=== PATIENT | male | born 1955 | race Caucasian/White ===

== ENCOUNTER 2022-04-08 14:23 | Inpatient (IN) ==
[2022-04-08] MEDS ORDERED: NS 0.9% 1000 ml BAG 1,000 ML IV ONE (14:44)
[2022-04-08] MEDS ORDERED: Ondansetron ODT 4 mg TAB 4 MG TAB PO ONE (15:31)
[2022-04-08 15:33] LABS: ABS Basophils 0.1 10^3/ul (0-0.2); ABS Eosinophils 0.2 10^3/ul (0-0.6); ABS Lymphocytes 1.6 10^3/ul (1.0-4.8); ABS Monocytes 1.1 10^3/ul (0-0.8); Eosinophil % 1.3 %; Hematocrit 31 % (42-52); Lymphocyte % 12.3 %; Mean Corpuscular HGB Conc 32 g/dL (31-36); Mean Corpuscular Hemoglobin 26 pg (27-31); Mean Corpuscular Volume 81 fL (80-94); Mean Platelet Volume 7.1 fL (7.4-10.4); Platelet Count 557 10^3/uL (150-450); Red Blood Count 3.87 10^6 /uL (4.18-5.48); Red Cell Distribution Width 18 % (10-15)
[2022-04-08 15:55] LABS: High Sens Troponin Baseline 5 pg/mL (<20)
[2022-04-08 16:11] LABS: ALT 14 U/L (7-52); AST 10 U/L (13-39); Albumin 3.5 g/dL (3.2-5.2); Albumin/Globulin Ratio 1.4 (1-3); Alkaline Phosphatase 73 U/L (35-149); Anion Gap 11 mmol/L (2-11); Blood Urea Nitrogen 15 mg/dL (6-24); CO2 Carbon Dioxide 28 mmol/L (22-32); Calcium 9.5 mg/dL (8.6-10.3); Chloride 98 mmol/L (101-111); Creatine Kinase 13 U/L (10-223); Globulin 2.5 g/dL (2-4); Glucose 83 mg/dL (70-100); Magnesium 1.8 mg/dL (1.9-2.7); Potassium 4.7 mmol/L (3.5-5.0); Sodium 137 mmol/L (135-145); eGFR CKD-EPI 89.4 (>60)
[2022-04-08 16:25] LABS: TSH Ultra Thyroid Stim Horm 1.91 mcIU/mL (0.34-5.60)
[2022-04-08 17:10] LABS: High Sensitivity Troponin 1 Hr < 3 pg/mL (<20)
[2022-04-08] MEDS ORDERED: Hydrocortisone INJ 100 MG/2ML 2 ML VIAL IV ONE (18:56)
[2022-04-08 19:20] LABS: Rheumatoid Factor > 120 IU/mL (<15)
[2022-04-08 20:01] LABS: Urine Appearance Clear; Urine Bilirubin Negative (Negative); Urine Blood Negative (Negative); Urine Color Yellow; Urine Glucose Negative (Negative); Urine Ketones Trace (Negative); Urine Nitrite Negative (Negative); Urine Protein Negative (Negative); Urine Specific Gravity 1.019 (1.002-1.030); Urine Urobilinogen Negative (Negative)
[2022-04-08] MEDS ORDERED: Ondansetron 4 mg VIAL 2 MG/ML 2 ml VIAL IV PRN (20:04)
[2022-04-08 21:23] LABS: Erythrocyte Sed Rate 116 mm/Hr (0-19)
[2022-04-08] MEDS ORDERED: Calcium Carb (TUMS) 500 mg CHEW TAB PO PRN (22:28)
[2022-04-08] MEDS ORDERED: Lidocaine 4% TOPICAL 50 ML TOP.SOLN TOPICAL PRN (22:28)
[2022-04-09 06:30] LABS: Hematocrit 28 % (42-52); Hemoglobin 8.9 g/dL (14.0-18.0); Mean Corpuscular HGB Conc 32 g/dL (31-36); Mean Corpuscular Hemoglobin 26 pg (27-31); Mean Corpuscular Volume 81 fL (80-94); Mean Platelet Volume 7.1 fL (7.4-10.4); Platelet Count 501 10^3/uL (150-450); Red Blood Count 3.45 10^6 /uL (4.18-5.48); Red Cell Distribution Width 18 % (10-15); White Blood Count 8.9 10^3/uL (3.5-10.8)
[2022-04-09 07:09] LABS: Magnesium 1.8 mg/dL (1.9-2.7); Potassium 4.7 mmol/L (3.5-5.0); eGFR CKD-EPI 95.8 (>60)
[2022-04-09] MEDS: SPIRIVA Respimat (tiotropium) 2.5 mcg/inh Inhaler INH SCH (08:57)
[2022-04-09] MEDS: Clotrimazole 1% CREAM 30 gm TOPICAL SCH ×2 (09:28→22:03)
[2022-04-09] MEDS: MINERAL OIL ISOPROPYL MYRISTAT TOPICAL SCH ×3 (09:29→22:02)
[2022-04-09] MEDS: TERBINAFINE HCL 250 MG PO SCH (09:30)
[2022-04-09] MEDS ORDERED: methylPREDNISolone SOD SUCC 1000 MG ML VIAL IVPB SCH (12:00)
[2022-04-09] MEDS: methylPREDNISolone SOD SUCC 1,000 MG in NS 0.9% 250 ml 250 ML IVPB SCH (13:24)
[2022-04-09 18:27] LABS: Uric Acid 5.2 mg/dL (4.4-7.6)
[2022-04-09] MEDS: Acetaminophen IV 1 GM/100ML 1,000 MG/100 ML BAG IV SCH (22:02)
[2022-04-10 05:43] LABS: ABS Lymphocytes 0.8 10^3/ul (1.0-4.8); ABS Monocytes 0.2 10^3/ul (0-0.8); Hematocrit 28 % (42-52); Hemoglobin 8.5 g/dL (14.0-18.0); Lymphocyte % 11.6 %; Mean Corpuscular HGB Conc 31 g/dL (31-36); Mean Corpuscular Hemoglobin 25 pg (27-31); Mean Corpuscular Volume 80 fL (80-94); Mean Platelet Volume 7.2 fL (7.4-10.4); Platelet Count 493 10^3/uL (150-450); Red Blood Count 3.45 10^6 /uL (4.18-5.48); Red Cell Distribution Width 18 % (10-15); White Blood Count 6.9 10^3/uL (3.5-10.8)
[2022-04-10] MEDS: Acetaminophen IV 1 GM/100ML 1,000 MG/100 ML BAG IV SCH ×3 (06:03→22:30)
[2022-04-10 06:22] LABS: Albumin/Globulin Ratio 1.4 (1-3); Globulin 2.2 g/dL (2-4); Magnesium 1.7 mg/dL (1.9-2.7); Potassium 4.8 mmol/L (3.5-5.0); Total Bilirubin 0.1 mg/dL (0.2-1.0); Total Protein 5.2 g/dL (6.4-8.9)
[2022-04-10] MEDS ORDERED: Magnesium Sulfate 2 gm BAG 2 GM/50 ML BAG IVPB ONE (07:14)
[2022-04-10] MEDS: Clotrimazole 1% CREAM 30 gm TOPICAL SCH ×2 (07:58→20:38)
[2022-04-10] MEDS: MINERAL OIL ISOPROPYL MYRISTAT TOPICAL SCH ×3 (08:00→20:38)
[2022-04-10] MEDS: TERBINAFINE HCL 250 MG PO SCH (08:00)
[2022-04-10] MEDS: SPIRIVA Respimat (tiotropium) 2.5 mcg/inh Inhaler INH SCH (08:12)
[2022-04-10] MEDS: methylPREDNISolone SOD SUCC 1,000 MG in NS 0.9% 250 ml 250 ML IVPB SCH (10:15)
[2022-04-11 05:59] LABS: ABS Lymphocytes 0.9 10^3/ul (1.0-4.8); ABS Monocytes 0.5 10^3/ul (0-0.8); ABS Neutrophils 14.8 10^3/ul (1.5-7.7); Hematocrit 27 % (42-52); Hemoglobin 8.4 g/dL (14.0-18.0); Lymphocyte % 5.4 %; Mean Corpuscular HGB Conc 31 g/dL (31-36); Mean Corpuscular Hemoglobin 25 pg (27-31); Mean Corpuscular Volume 80 fL (80-94); Mean Platelet Volume 7.7 fL (7.4-10.4); Platelet Count 512 10^3/uL (150-450); Red Blood Count 3.34 10^6 /uL (4.18-5.48); Red Cell Distribution Width 18 % (10-15); White Blood Count 16.1 10^3/uL (3.5-10.8)
[2022-04-11] MEDS: Acetaminophen IV 1 GM/100ML 1,000 MG/100 ML BAG IV SCH ×3 (06:27→20:53)
[2022-04-11 06:29] LABS: C Reactive Protein 39.38 mg/L (<8.01); Calcium 8.9 mg/dL (8.6-10.3); Potassium 4.6 mmol/L (3.5-5.0)
[2022-04-11] MEDS: MINERAL OIL ISOPROPYL MYRISTAT TOPICAL SCH ×3 (07:36→20:53)
[2022-04-11] MEDS: TERBINAFINE HCL 250 MG PO SCH (07:37)
[2022-04-11] MEDS: Clotrimazole 1% CREAM 30 gm TOPICAL SCH ×2 (08:11→20:52)
[2022-04-11] MEDS: SPIRIVA Respimat (tiotropium) 2.5 mcg/inh Inhaler INH SCH (08:23)
[2022-04-11] MEDS: methylPREDNISolone SOD SUCC 1,000 MG in NS 0.9% 250 ml 250 ML IVPB SCH (09:22)
[2022-04-11 13:15] LABS: Erythrocyte Sed Rate 96 mm/Hr (0-19)
[2022-04-12 06:53] LABS: ABS Lymphocytes 1.3 10^3/ul (1.0-4.8); ABS Monocytes 0.6 10^3/ul (0-0.8); Hematocrit 25 % (42-52); Hemoglobin 8.1 g/dL (14.0-18.0); Mean Corpuscular HGB Conc 32 g/dL (31-36); Mean Corpuscular Hemoglobin 26 pg (27-31); Mean Corpuscular Volume 80 fL (80-94); Mean Platelet Volume 7.2 fL (7.4-10.4); Platelet Count 454 10^3/uL (150-450); Red Blood Count 3.14 10^6 /uL (4.18-5.48); Red Cell Distribution Width 18 % (10-15)
[2022-04-12] MEDS: Acetaminophen IV 1 GM/100ML 1,000 MG/100 ML BAG IV SCH ×3 (07:27→22:21)
[2022-04-12 07:36] LABS: Potassium 4.6 mmol/L (3.5-5.0); eGFR CKD-EPI 94.2 (>60)
[2022-04-12] MEDS: SPIRIVA Respimat (tiotropium) 2.5 mcg/inh Inhaler INH SCH (07:37)
[2022-04-12] MEDS: Clotrimazole 1% CREAM 30 gm TOPICAL SCH ×2 (08:49→20:59)
[2022-04-12] MEDS: MINERAL OIL ISOPROPYL MYRISTAT TOPICAL SCH ×3 (08:52→21:00)
[2022-04-12] MEDS: TERBINAFINE HCL 250 MG PO SCH (08:52)
[2022-04-12 11:03] LABS: Rapid COVID-19 Molecular Undetected (Undetected)
[2022-04-12 16:55] LABS: Albumin 2.3 g/dL (3.4-4.7); Albumin/Globulin Ratio 0.78; Gamma Globulin 0.4 g/dL (0.6-1.6); Total Protein(PEP) 5.3 g/dL (6.3 - 7.9)
[2022-04-13] MEDS: Acetaminophen IV 1 GM/100ML 1,000 MG/100 ML BAG IV SCH (06:19)
[2022-04-13] MEDS: SPIRIVA Respimat (tiotropium) 2.5 mcg/inh Inhaler INH SCH (07:57)
[2022-04-13] MEDS: Clotrimazole 1% CREAM 30 gm TOPICAL SCH (10:07)
[2022-04-13] MEDS: MINERAL OIL ISOPROPYL MYRISTAT TOPICAL SCH (10:07)
[2022-04-13] MEDS: TERBINAFINE HCL 250 MG PO SCH (10:07)
[2022-04-13 12:46] VITALS: BP 120/69
[2022-04-14 15:46] LABS: Kappa Free Light Chain 0.8 mg/dL; Lambda Free Light Chain, S 0.81 mg/dL
== END 2022-04-13 13:25 | DRG 547 ==
LOC: EDHOLD 14:23 → ED 14:23 → SUATTDRO 19:46 → MED 04-09 05:49 → SUATTDRO 04-09 17:00
PROVIDERS: ADMIT Internal Medicine; ATTEND Student in an Organized Health Care Education/Training Program

== ENCOUNTER 2022-06-02 13:00 | Inpatient (IN) ==
[2022-06-02] MEDS ORDERED: Morphine 4 MG/ML VIAL (1 ml) IV ONE (13:30)
[2022-06-02 14:23] LABS: Hematocrit 34 % (42-52); Hemoglobin 10.5 g/dL (14.0-18.0); Mean Corpuscular HGB Conc 31 g/dL (31-36); Mean Corpuscular Hemoglobin 25 pg (27-31); Mean Corpuscular Volume 81 fL (80-94); Mean Platelet Volume 7.3 fL (7.4-10.4); Platelet Count 489 10^3/uL (150-450); Red Blood Count 4.19 10^6 /uL (4.18-5.48); Red Cell Distribution Width 24 % (10-15); White Blood Count 15.2 10^3/uL (3.5-10.8)
[2022-06-02] MEDS ORDERED: Lactated Ringers 1000 ml BAG 1,000 ML IV ONE (14:43)
[2022-06-02 15:00] LABS: ABS Basophils 0.1 10^3/ul (0-0.2); ABS Eosinophils 0.1 10^3/ul (0-0.6); ABS Lymphocytes 1.6 10^3/ul (1.0-4.8); ABS Monocytes 1.6 10^3/ul (0-0.8); ABS Neutrophils 11.8 10^3/ul (1.5-7.7); Eosinophil % 0.6 %; Lymphocyte % 10.3 %
[2022-06-02 15:31] LABS: ALT 7 U/L (7-52); AST 9 U/L (13-39); Albumin 3.5 g/dL (3.2-5.2); Albumin/Globulin Ratio 1.3 (1-3); Alkaline Phosphatase 71 U/L (35-149); Anion Gap 13 mmol/L (2-11); Blood Urea Nitrogen 12 mg/dL (6-24); C Reactive Protein 273.79 mg/L (<8.01); CO2 Carbon Dioxide 24 mmol/L (22-32); Calcium 9.3 mg/dL (8.6-10.3); Chloride 95 mmol/L (101-111); Globulin 2.6 g/dL (2-4); Glucose 67 mg/dL (70-100); Magnesium 1.9 mg/dL (1.9-2.7); Phosphorus 3.6 mg/dL (2.5-5.0); Potassium 4.7 mmol/L (3.5-5.0); Sodium 132 mmol/L (135-145); Total Protein 6.1 g/dL (6.4-8.9); eGFR CKD-EPI 96.5 (>60)
[2022-06-02] MEDS ORDERED: NS 0.9% IVPB ONE (18:03)
[2022-06-02] MEDS ORDERED: METHYLPREDNISOLONE SOD SUCC IVPB ONE (18:03)
[2022-06-02] MEDS ORDERED: Albuterol HFA INHALER 8 gm MDI INH PRN (18:04)
[2022-06-02 18:53] LABS: Rheumatoid Factor > 120 IU/mL (<15)
[2022-06-02 19:24] LABS: Erythrocyte Sed Rate 114 mm/Hr (0-19)
[2022-06-02] MEDS: Clotrimazole 1% CREAM 30 gm TOPICAL SCH (23:19)
[2022-06-02] MEDS: Enoxaparin 40 MG/0.4 ML SYR SUBCUT SCH (23:19)
[2022-06-03 00:25] LABS: Urine Appearance Clear; Urine Bilirubin 3+ (Large) (Negative); Urine Blood Negative (Negative); Urine Color Yellow; Urine Glucose Negative (Negative); Urine Ketones 1+ (15mg/dL) (Negative); Urine Nitrite Negative (Negative); Urine Protein Trace (Negative); Urine Specific Gravity 1.023 (1.002-1.030); Urine pH 5.5 (5.0-9.0)
[2022-06-03 00:28] LABS: Urine Bacteria Absent (Absent); Urine Red Blood Cell Trace(0-2/hpf) (Absent); Urine White Blood Cell Trace(0-5/hpf) (Absent)
[2022-06-03 05:37] LABS: Albumin 2.9 g/dL (3.2-5.2); Albumin/Globulin Ratio 1.5 (1-3); Potassium 4.2 mmol/L (3.5-5.0); Total Bilirubin 0.5 mg/dL (0.2-1.0); Total Protein 4.9 g/dL (6.4-8.9); eGFR CKD-EPI 100.3 (>60)
[2022-06-03 06:13] LABS: ABS Lymphocytes 0.4 10^3/ul (1.0-4.8); ABS Monocytes 0.2 10^3/ul (0-0.8); ABS Neutrophils 11.5 10^3/ul (1.5-7.7); Eosinophil % 0.1 %; Hematocrit 31 % (42-52); Hemoglobin 9.8 g/dL (14.0-18.0); Lymphocyte % 3.4 %; Mean Corpuscular HGB Conc 32 g/dL (31-36); Mean Corpuscular Hemoglobin 26 pg (27-31); Mean Corpuscular Volume 81 fL (80-94); Platelet Count 449 10^3/uL (150-450); Red Blood Count 3.83 10^6 /uL (4.18-5.48); Red Cell Distribution Width 24 % (10-15); White Blood Count 12.2 10^3/uL (3.5-10.8)
[2022-06-03] MEDS: TERBINAFINE HCL 250 MG PO SCH (08:31)
[2022-06-03] MEDS: Clotrimazole 1% CREAM 30 gm TOPICAL SCH ×3 (08:31→22:07)
[2022-06-03] MEDS: SPIRIVA Respimat (tiotropium) 2.5 mcg/inh Inhaler INH SCH (08:32)
[2022-06-03] MEDS ORDERED: Dextrose 50% Syringe 50 ml 25 GM/50 ML SYRINGE IV PUSH PRN (17:21)
[2022-06-03] MEDS: Enoxaparin 40 MG/0.4 ML SYR SUBCUT SCH (20:56)
[2022-06-03] MEDS: methylPREDNISolone SOD 125 mg 250 MG in NS 0.9% 100 ml BAG 100 ML IV SCH (23:36)
[2022-06-04 06:42] LABS: ABS Monocytes 0.8 10^3/ul (0-0.8); ABS Neutrophils 15.5 10^3/ul (1.5-7.7); Hematocrit 28 % (42-52); Hemoglobin 9.2 g/dL (14.0-18.0); Lymphocyte % 5.7 %; Mean Corpuscular HGB Conc 32 g/dL (31-36); Mean Corpuscular Hemoglobin 26 pg (27-31); Mean Corpuscular Volume 80 fL (80-94); Platelet Count 463 10^3/uL (150-450); Red Blood Count 3.55 10^6 /uL (4.18-5.48); Red Cell Distribution Width 23 % (10-15); White Blood Count 17.4 10^3/uL (3.5-10.8)
[2022-06-04 06:59] LABS: Potassium 4.4 mmol/L (3.5-5.0); eGFR CKD-EPI 96.9 (>60)
[2022-06-04] MEDS: SPIRIVA Respimat (tiotropium) 2.5 mcg/inh Inhaler INH SCH (08:31)
[2022-06-04] MEDS: TERBINAFINE HCL 250 MG PO SCH (09:13)
[2022-06-04] MEDS: Clotrimazole 1% CREAM 30 gm TOPICAL SCH ×2 (09:13→19:40)
[2022-06-04] MEDS: methylPREDNISolone SOD 125 mg 250 MG in NS 0.9% 100 ml BAG 100 ML IV SCH (17:42)
[2022-06-04] MEDS: Enoxaparin 40 MG/0.4 ML SYR SUBCUT SCH (19:42)
[2022-06-05 07:08] LABS: ABS Lymphocytes 0.7 10^3/ul (1.0-4.8); ABS Monocytes 0.3 10^3/ul (0-0.8); ABS Neutrophils 13.4 10^3/ul (1.5-7.7); Hematocrit 26 % (42-52); Lymphocyte % 4.9 %; Mean Corpuscular HGB Conc 31 g/dL (31-36); Mean Corpuscular Hemoglobin 25 pg (27-31); Mean Corpuscular Volume 81 fL (80-94); Mean Platelet Volume 7.7 fL (7.4-10.4); Platelet Count 411 10^3/uL (150-450); Red Blood Count 3.16 10^6 /uL (4.18-5.48); Red Cell Distribution Width 23 % (10-15); White Blood Count 14.5 10^3/uL (3.5-10.8)
[2022-06-05 07:53] LABS: Calcium 8.7 mg/dL (8.6-10.3); Potassium 4.6 mmol/L (3.5-5.0); eGFR CKD-EPI 95.5 (>60)
[2022-06-05] MEDS: SPIRIVA Respimat (tiotropium) 2.5 mcg/inh Inhaler INH SCH (08:04)
[2022-06-05 09:23] LABS: Ferritin 357.8 ng/mL (24-336)
[2022-06-05] MEDS: Clotrimazole 1% CREAM 30 gm TOPICAL SCH ×2 (09:46→20:54)
[2022-06-05] MEDS: TERBINAFINE HCL 250 MG PO SCH (09:48)
[2022-06-05 10:16] LABS: Corrected Retic Count 0.8 % (0.5-1.5); Hematocrit for Retic CNT 26 % (42-52); Immature Retic Fraction 0.36; RBC Retic Count 3.17 10^6/uL (4.18-5.48)
[2022-06-05] MEDS: Enoxaparin 40 MG/0.4 ML SYR SUBCUT SCH (20:53)
[2022-06-06 06:04] LABS: ABS Lymphocytes 1.5 10^3/ul (1.0-4.8); ABS Monocytes 0.7 10^3/ul (0-0.8); ABS Neutrophils 10.8 10^3/ul (1.5-7.7); Hematocrit 25 % (42-52); Hemoglobin 7.9 g/dL (14.0-18.0); Lymphocyte % 11.3 %; Mean Corpuscular HGB Conc 32 g/dL (31-36); Mean Corpuscular Hemoglobin 26 pg (27-31); Mean Corpuscular Volume 80 fL (80-94); Mean Platelet Volume 7.9 fL (7.4-10.4); Platelet Count 403 10^3/uL (150-450); Red Blood Count 3.07 10^6 /uL (4.18-5.48); Red Cell Distribution Width 23 % (10-15)
[2022-06-06 06:21] LABS: Calcium 8.4 mg/dL (8.6-10.3); Magnesium 1.8 mg/dL (1.9-2.7); Potassium 4.2 mmol/L (3.5-5.0); eGFR CKD-EPI 95.5 (>60)
[2022-06-06] MEDS: SPIRIVA Respimat (tiotropium) 2.5 mcg/inh Inhaler INH SCH (07:51)
[2022-06-06] MEDS: Clotrimazole 1% CREAM 30 gm TOPICAL SCH (09:25)
[2022-06-06] MEDS: TERBINAFINE HCL 250 MG PO SCH (09:26)
[2022-06-06 11:25] VITALS: BP 128/65
[2022-06-06 11:28] LABS: Rapid COVID-19 Molecular Undetected (Undetected)
== END 2022-06-06 14:25 | DRG 546 ==
LOC: ED 13:00 → EDHOLD 13:00 → MED 06-03 16:41 → SUATTDRO 06-04 14:42
PROVIDERS: ADMIT Internal Medicine; ATTEND Hospitalist

== ENCOUNTER 2022-06-14 12:12 | Observation (INO) ==
[2022-06-14] MEDS ORDERED: Lactated Ringers 1000 ml BAG 1,000 ML IV ONE (12:38)
[2022-06-14 12:59] LABS: Hematocrit 32 % (42-52); Mean Corpuscular HGB Conc 32 g/dL (31-36); Mean Corpuscular Hemoglobin 25 pg (27-31); Mean Corpuscular Volume 80 fL (80-94); Mean Platelet Volume 7.5 fL (7.4-10.4); Platelet Count 594 10^3/uL (150-450); Red Blood Count 3.96 10^6 /uL (4.18-5.48); Red Cell Distribution Width 24 % (10-15); White Blood Count 16.9 10^3/uL (3.5-10.8)
[2022-06-14 13:07] LABS: INR 1.37 (0.88-1.18)
[2022-06-14 13:36] LABS: ABS Basophils 0.2 10^3/ul (0-0.2); ABS Eosinophils 0.1 10^3/ul (0-0.6); ABS Lymphocytes 1.5 10^3/ul (1.0-4.8); ABS Monocytes 2.1 10^3/ul (0-0.8); ABS Neutrophils 12.9 10^3/ul (1.5-7.7); Eosinophil % 0.6 %; Lymphocyte % 9.1 %
[2022-06-14 13:40] LABS: ALT 9 U/L (7-52); Albumin 3.3 g/dL (3.2-5.2); Albumin/Globulin Ratio 1.1 (1-3); Alkaline Phosphatase 85 U/L (35-149); Blood Urea Nitrogen 15 mg/dL (6-24); C Reactive Protein 299.34 mg/L (<8.01); CO2 Carbon Dioxide 21 mmol/L (22-32); Calcium 9.2 mg/dL (8.6-10.3); Chloride 95 mmol/L (101-111); Globulin 2.9 g/dL (2-4); Glucose 82 mg/dL (70-100); Sodium 133 mmol/L (135-145); Total Protein 6.2 g/dL (6.4-8.9); eGFR CKD-EPI 99.1 (>60)
[2022-06-14 13:42] LABS: Anion Gap 17 mmol/L (2-11)
[2022-06-14 14:46] LABS: Magnesium 1.7 mg/dL (1.9-2.7)
[2022-06-14 14:49] LABS: Direct Bilirubin Redraw 0.1 mg/dL (0.03-0.18); Potassium Redraw 4.3 mmol/L (3.5-5.0)
[2022-06-14] MEDS ORDERED: methylPREDNISolone SOD SUCC 1000 MG ML VIAL IVPB ONE (17:10)
[2022-06-14] MEDS ORDERED: methylPREDNISolone SOD SUCC 1,000 MG in NS 0.9% 250 ml 250 ML IVPB ONE (18:00)
[2022-06-14] MEDS ORDERED: Magnesium Sulfate 2 gm BAG 2 GM/50 ML BAG IVPB ONE (18:08)
[2022-06-14] MEDS ORDERED: Albuterol HFA INHALER 8 gm MDI INH PRN (18:52)
[2022-06-14] MEDS ORDERED: NS 0.9% 1000 ml BAG 1,000 ML IV SCH (19:30)
[2022-06-14] MEDS ORDERED: Enoxaparin 40 MG/0.4 ML SYR SUBCUT SCH (21:00)
[2022-06-15 06:42] LABS: ABS Lymphocytes 0.5 10^3/ul (1.0-4.8); ABS Monocytes 0.1 10^3/ul (0-0.8); ABS Neutrophils 7.6 10^3/ul (1.5-7.7); Hematocrit 33 % (42-52); Hemoglobin 10.6 g/dL (14.0-18.0); Lymphocyte % 6.5 %; Mean Corpuscular HGB Conc 32 g/dL (31-36); Mean Corpuscular Hemoglobin 26 pg (27-31); Mean Corpuscular Volume 81 fL (80-94); Mean Platelet Volume 7.8 fL (7.4-10.4); Nucleated Red Blood Cells % 0.1; Platelet Count 474 10^3/uL (150-450); Red Blood Count 4.13 10^6 /uL (4.18-5.48); Red Cell Distribution Width 24 % (10-15); White Blood Count 8.3 10^3/uL (3.5-10.8)
[2022-06-15 06:51] LABS: Calcium 8.7 mg/dL (8.6-10.3); Magnesium 2.2 mg/dL (1.9-2.7); eGFR CKD-EPI 96.2 (>60)
[2022-06-15] MEDS ORDERED: SPIRIVA Respimat (tiotropium) 2.5 mcg/inh Inhaler INH SCH (09:00)
[2022-06-15 12:29] VITALS: BP 122/67
[2022-06-15 13:56] LABS: Urine Appearance Clear; Urine Bilirubin 1+ (Small) (Negative); Urine Color Yellow; Urine Glucose 2+ (500mg/dL) (Negative)
[2022-06-15 13:57] LABS: Urine Blood Negative (Negative); Urine Ketones Negative (Negative); Urine Nitrite Negative (Negative); Urine Protein 1+ (30 mg/dL) (Negative); Urine Specific Gravity 1.031 (1.002-1.030); Urine Urobilinogen 0.2 (Negative) (Negative)
[2022-06-15 14:05] LABS: Urine Amorphous Crystals Present (Absent); Urine Bacteria Absent (Absent); Urine Red Blood Cell Trace(0-2/hpf) (Absent); Urine Squamous Epithelial Cell Present (Absent); Urine White Blood Cell Trace(0-5/hpf) (Absent)
[2022-06-15] MEDS ORDERED: methylPREDNISolone SOD 125 mg 250 MG in NS 0.9% 100 ml BAG 100 ML IV SCH (18:30)
== END 2022-06-15 17:00 ==
LOC: ED 12:12 → EDHOLD 18:45 → INTOOBSV 18:45 → EDHOLD 06-15 00:30 → MED 06-15 00:59
PROVIDERS: ADMIT Internal Medicine; ATTEND Internal Medicine

== ENCOUNTER 2022-06-24 17:10 | Inpatient (IN) ==
[2022-06-24] MEDS ORDERED: Lactated Ringers 1000 ml BAG 1,000 ML IV ONE (19:38)
[2022-06-24 21:53] LABS: Hematocrit 28 % (42-52); Hemoglobin 8.4 g/dL (14.0-18.0); Mean Corpuscular HGB Conc 31 g/dL (31-36); Mean Corpuscular Hemoglobin 25 pg (27-31); Mean Corpuscular Volume 81 fL (80-94); Platelet Count 477 10^3/uL (150-450); Red Blood Count 3.38 10^6 /uL (4.18-5.48); Red Cell Distribution Width 24 % (10-15)
[2022-06-24] MEDS ORDERED: Vancomycin 1,250 MG in NS 0.9% 250 ml 250 ML IVPB ONE (22:09)
[2022-06-24] MEDS ORDERED: Cefepime 2 GM in Dextrose 2 GM/50 ML BAG IV ONE (22:10)
[2022-06-24 22:11] LABS: Albumin 2.7 g/dL (3.2-5.2); Albumin/Globulin Ratio 1.3 (1-3); Calcium 8.4 mg/dL (8.6-10.3); Globulin 2.1 g/dL (2-4); Total Bilirubin 0.2 mg/dL (0.2-1.0); Total Protein 4.8 g/dL (6.4-8.9); eGFR CKD-EPI 49.4 (>60)
[2022-06-24 22:17] LABS: ABS Basophils 0.1 10^3/ul (0-0.2); ABS Lymphocytes 1.7 10^3/ul (1.0-4.8); ABS Monocytes 0.8 10^3/ul (0-0.8); ABS Neutrophils 18.3 10^3/ul (1.5-7.7)
[2022-06-24 22:26] LABS: Potassium 4.4 mmol/L (3.5-5.0)
[2022-06-24] MEDS ORDERED: Albuterol HFA INHALER 8 gm MDI INH PRN (22:31)
[2022-06-24] MEDS: Heparin 5000 UNITS/ML 1 mL VIAL SUBCUT SCH (23:08)
[2022-06-25] MEDS: Heparin 5000 UNITS/ML 1 mL VIAL SUBCUT SCH ×3 (05:48→21:32)
[2022-06-25] MEDS: SPIRIVA Respimat (tiotropium) 2.5 mcg/inh Inhaler INH SCH (07:09)
[2022-06-25 08:15] LABS: Hematocrit 29 % (42-52); Hemoglobin 8.9 g/dL (14.0-18.0); Mean Corpuscular HGB Conc 31 g/dL (31-36); Mean Corpuscular Hemoglobin 25 pg (27-31); Mean Corpuscular Volume 82 fL (80-94); Mean Platelet Volume 8.1 fL (7.4-10.4); Platelet Count 445 10^3/uL (150-450); Red Blood Count 3.57 10^6 /uL (4.18-5.48); Red Cell Distribution Width 24 % (10-15); White Blood Count 16.2 10^3/uL (3.5-10.8)
[2022-06-25 08:50] LABS: Calcium 8.4 mg/dL (8.6-10.3); Potassium 4.4 mmol/L (3.5-5.0); eGFR CKD-EPI 45.8 (>60)
[2022-06-25 09:20] LABS: Anisocytosis 2+; Polychromasia 1+; Toxic Granulation 1+
[2022-06-25 09:21] LABS: ABS Lymphocytes 2.2 10^3/ul (1.0-4.8); ABS Monocytes 0.9 10^3/ul (0-0.8); ABS Neutrophils 12.9 10^3/ul (1.5-7.7); Eosinophil % 0.2 %; Lymphocyte % 13.9 %; Nucleated Red Blood Cells % 0.1
[2022-06-26] MEDS: Heparin 5000 UNITS/ML 1 mL VIAL SUBCUT SCH ×3 (06:16→20:10)
[2022-06-26 06:58] LABS: ABS Basophils 0.1 10^3/ul (0-0.2); ABS Eosinophils 0.1 10^3/ul (0-0.6); ABS Monocytes 0.8 10^3/ul (0-0.8); ABS Neutrophils 13.6 10^3/ul (1.5-7.7); Eosinophil % 0.5 %; Hematocrit 29 % (42-52); Hemoglobin 8.8 g/dL (14.0-18.0); Lymphocyte % 12.1 %; Mean Corpuscular HGB Conc 31 g/dL (31-36); Mean Corpuscular Hemoglobin 25 pg (27-31); Mean Corpuscular Volume 81 fL (80-94); Mean Platelet Volume 7.8 fL (7.4-10.4); Platelet Count 502 10^3/uL (150-450); Red Cell Distribution Width 24 % (10-15); White Blood Count 16.6 10^3/uL (3.5-10.8)
[2022-06-26 07:29] LABS: Calcium 8.4 mg/dL (8.6-10.3); Magnesium 1.8 mg/dL (1.9-2.7); Potassium 4.3 mmol/L (3.5-5.0); eGFR CKD-EPI 94.5 (>60)
[2022-06-26] MEDS: SPIRIVA Respimat (tiotropium) 2.5 mcg/inh Inhaler INH SCH (07:34)
[2022-06-26] MEDS ORDERED: Magnesium Sulfate 2 gm BAG 2 GM/50 ML BAG IVPB ONE (07:40)
[2022-06-26] MEDS ORDERED: Senna TAB 8.6 mg TAB PO PRN (12:21)
[2022-06-26] MEDS ORDERED: Polyethylene Glycol 3350 17 GM PACKET PO PRN (12:21)
[2022-06-26] MEDS ORDERED: Morphine 4 MG/ML VIAL (1 ml) IV ONE (14:10)
[2022-06-27] MEDS: Heparin 5000 UNITS/ML 1 mL VIAL SUBCUT SCH ×3 (05:59→22:27)
[2022-06-27 06:43] LABS: Hematocrit 30 % (42-52); Hemoglobin 9.1 g/dL (14.0-18.0); Mean Corpuscular HGB Conc 30 g/dL (31-36); Mean Corpuscular Hemoglobin 25 pg (27-31); Mean Corpuscular Volume 82 fL (80-94); Mean Platelet Volume 7.9 fL (7.4-10.4); Platelet Count 581 10^3/uL (150-450); Red Blood Count 3.66 10^6 /uL (4.18-5.48); Red Cell Distribution Width 25 % (10-15); White Blood Count 16.1 10^3/uL (3.5-10.8)
[2022-06-27] MEDS: SPIRIVA Respimat (tiotropium) 2.5 mcg/inh Inhaler INH SCH (07:39)
[2022-06-28] MEDS: Heparin 5000 UNITS/ML 1 mL VIAL SUBCUT SCH ×3 (05:59→21:39)
[2022-06-28] MEDS: SPIRIVA Respimat (tiotropium) 2.5 mcg/inh Inhaler INH SCH (08:33)
[2022-06-28] MEDS: Nystatin TOP POWDER 15 GM BTL TOPICAL SCH ×3 (14:24→20:57)
[2022-06-29] MEDS: Heparin 5000 UNITS/ML 1 mL VIAL SUBCUT SCH (05:48)
[2022-06-29] MEDS: Nystatin TOP POWDER 15 GM BTL TOPICAL SCH (07:53)
[2022-06-29] MEDS: SPIRIVA Respimat (tiotropium) 2.5 mcg/inh Inhaler INH SCH (08:22)
[2022-06-29 12:18] VITALS: BP 113/50
[2022-06-29] MEDS ORDERED: Enoxaparin 40 MG/0.4 ML SYR SUBCUT SCH (14:00)
== END 2022-06-29 13:55 | DRG 563 ==
LOC: EDHOLD 17:10 → ED 17:10 → SUATTDRO 22:24 → MEDTELE 06-25 01:54 → SUATTDRO 06-26 07:30
PROVIDERS: ADMIT Student in an Organized Health Care Education/Training Program; ATTEND Internal Medicine